=== PATIENT | female | born 1995 | race African-American/Black ===

== ENCOUNTER 2024-07-05 10:24 | Outpatient (CLI) | payer OTHER, SELFPAY | END 2024-07-05 10:25 | disposition home or self-care (01) | LOC: ANHAUDASC 10:27 | PROVIDERS: Visit Provider Otolaryngology | DX: H93.A2 Pulsatile tinnitus, left ear (principal); H61.23 Impacted cerumen, bilateral | CPT/HCPCS: 92557; 92567 ==